=== PATIENT | female | born 1955 | race Caucasian/White ===

== ENCOUNTER 2017-07-14 06:58 | Day surgery (SDC) | payer OTHER ==
[~2017-07-14] VITALS: Ht 172.7 cm; Wt 137.0 kg
[~2017-07-14 06:58] MED LIST: ASPIRIN81 MG PO; ATORVASTATIN CA40 MG PO; DIABETIC MED PO; KOMBIGLYZE1 TA1 PO; LISINOPRIL5 MG PO; SERTRALINE HCL50 MG PO
[2017-07-14] MEDS ORDERED: LORTAB 7.57.5 MG PO (10:21)
[2017-07-14 11:06] VITALS: BP 103/59
== END 2017-07-14 10:52 | disposition home or self-care (01) | DRG 744 ==
LOC: ORM 06:58
PROVIDERS: ATTEND Obstetrics & Gynecology
PROC: 0UDB7ZX Extraction of Endometrium, Via Natural or Artificial Opening, Diagnostic (ICD-10-PCS; principal; 2017-07-14)
DX: C54.1 Malignant neoplasm of endometrium (principal); E66.01 Morbid (severe) obesity due to excess calories; N95.0 Postmenopausal bleeding; R93.8 Abnormal findings on diagnostic imaging of other specified body structures; I10 Essential (primary) hypertension; E11.9 Type 2 diabetes mellitus without complications; Z68.43 Body mass index [BMI] 50.0-59.9, adult

== ENCOUNTER 2021-09-20 21:33 | Observation (INO) | payer MEDICARE, OTHER ==
[~2021-09-20] VITALS: Ht 157.5 cm; Wt 126.0 kg
[~2021-09-20 21:33] MED LIST changes: +LORTAB 7.57.5 MG PO
--- NOTE | 2021-09-20 21:35 | NUR ---
ADM F WITH STATED WEAKNESS DIARRHEA X 3-4 DAYS HX COVID 10+ DAQYS PRIOR.COUGH AND CONGESTION REPORTED THO PT IS CLEAR AND UNCONGESTED AT ARRIVAL.CLEAR BILAST BREATH SOUNDS
--- NOTE | 2021-09-20 22:40 | NUR ---
W/P/D SKIN NO COUGH NO CONGESTION NO SOB.SR NO ECTOPY NO DIARRHEA
[2021-09-20 22:56] LABS: HEMATOCRIT 39.7 % (37.0-47.0); HEMOGLOBIN 12.2 g/dl (12.0-16.0); IMMATURE GRANULOCYTES 3.6 % (0.0-5.0); MEAN CELL VOLUME 96.8 fL CALC (80.0-100.0); MEAN CORPUSCULAR HGB 29.8 pG CALC (26.0-32.0); MEAN CORPUSCULAR HGB CONC 30.7 g/dL CAL (32.0-36.0); NEUT# 5.63 thou/uL (2.00-7.15); RED BLOOD COUNT 4.1 mill/uL (4.20-5.60); RED CELL DISTRI WIDTH 14.6 % (11.5-15.5)
[2021-09-20 23:12] LABS: ALBUMIN 3.2 g/dL (3.2-5.0); ALKALINE PHOSPHATASE 93 u/l (38-126); BUN 15 mg/dL (8-23); BUN/CREATININE RATIO 18 (12-20 (CALC)); CARBON DIOXIDE 28 mmol/l (22-30); CHLORIDE 101 mmol/l (95-108); CREATININE 0.9 mg/dL (0.5-1.0); GFR > 60 ML/MIN (>=60 (CALC)); GFR FOR AFR.AMER. > 60 ML/MIN (>=60 (CALC)); SGOT/AST 30 u/l (9-36); SODIUM 138 mmol/l (137-146); TOTAL PROTEIN 7.3 g/dL (6.3-8.2)
[2021-09-20 23:13] LABS: ANION GAP 13 (6-22 (CALC)); BILIRUBIN, TOTAL 1.2 mg/dL (0.0-1.4); POTASSIUM 3.6 mmol/l (3.5-5.1)
[2021-09-20 23:24] LABS: MYOGLOBIN 77 ng/mL (0 - 62)
--- NOTE | 2021-09-20 23:50 | NUR ---
PT UP ON BSC TO VOID 400CC CONC URINE SPEC TO LAB NO DIFF WITH BODY MOVEMENTS NO COUGH OR CONGESTION
[2021-09-21] VITALS (7 sets, daily range): BP systolic 93–156; BP diastolic 50–76
[2021-09-21 00:35] LABS: URINE BILIRUBIN - DIPSTICK MODERATE (NEGATIVE); URINE BLOOD DIPSTICK TRACE-INTACT (NEGATIVE); URINE COLOR YELLOW; URINE GLUCOSE - DIPSTICK NEGATIVE (NEGATIVE); URINE KETONE 40 mg/dL (NEGATIVE); URINE LEUK ESTERASE NEGATIVE (NEGATIVE); URINE NITRITE - DIPSTICK NEGATIVE (Negative); URINE PROTEIN - DIPSTICK 30 mg/dL (NEG-TRACE); URINE SPECIFIC GRAVITY 1.025
[2021-09-21 00:40] LABS: URINE BACTERIA MODERATE hpf; URINE EPITHELIAL CELLS MANY EPI/hpf (0-FEW); URINE FINE GRAN CAST FEW lpf; URINE HYALINE CAST FEW lpf (NONE-RARE)
[2021-09-21 00:41] LABS: URINE COARSE GRANULAR CAST FEW lpf
[2021-09-21] MEDS ORDERED: BACTRIM DS1 TAB PO (00:47)
--- NOTE | 2021-09-21 01:00 | NUR ---
NASAL SWAB SPEC COLLECTED FOR COVID TEST NO COUGH NO CONGESTION NARES ARE CLEAR CLEAN AND DRY
--- NOTE | 2021-09-21 01:37 | NUR ---
W/P/D SKIN SR NO ECTOPY NO N/V OR D NO COUGH OR CONGESTION GIVEN WATER PO NO N/V DRANK ALL OF 16 OZ
--- NOTE | 2021-09-21 02:45 | NUR ---
W/P/D SKIN A/O X3 GCS 15 NO FOCAL DEFICITS
--- NOTE | 2021-09-21 03:35 | NUR ---
SR NO ECTOPY W/P/D SKIN GCS 15 SPEECH CLEAR NO COUGH NO CONGESTION NO FOCAL DEFICITS NO WEAKNESSES
--- NOTE | 2021-09-21 04:05 | NUR ---
PHONE REPORT TO NURSE EMI
--- NOTE | 2021-09-21 04:13 | NUR ---
PT TRANSPORTED TO [facility] 263 VIA WC ON TELE IN STABLE CONDITION NO CONGESTION NO COUGH NO INCONTINENE OF URINE OR STOOL THIS ER VISIT A/O X3 GCS 15
--- NOTE | 2021-09-21 04:20 | NUR ---
FROM ER TO ROOM 263 VIA W/C ACCOMPANIED BY SALMA LUU. PATIENT ABLE TO TRANSFER FROM W/C TO BED WITH SLOW UNSTEADY GAIT WITH ASSISTANCE. A&OX4, DENIES PAIN OR SOB AT THIS TIME, VSS, ON TELEMETRY READING SR PER ED MONITORING, NO S/S OF DISTRESS NOTED, RESP ARE EVEN AND UNLABORED, 22G LFA PATENT, IV FLUIDS INFUSING AT 150ML/HR, IV SHOWS NO S/S OF INFILTRATION. PT ARRIVED ON 2L O2 VIA NC, DENIES USING OXYGEN AT HOME, DIPPER AND DRIER COUGH NOTED, LUNGS ARE CLEAR UPPER LOBES, DIMINISHED BIBASILAR, MOVES ALL EXTREMETIES, SOME WEAKNESS NOTED, ENCOURAGED TO CALL FOR ASSISTANCE, EDUCATED ABOUT SAFETY MEASURES, CALL ROBBINS SYSTEM, AND PLAN OF CARE, PT VOICES UNDERSTANDING. CALL ROBBINS AT REACH, WILL FOLLOW UP WITH PLAN OF CARE.
[2021-09-21 04:58] LABS: TSH, 3RD GENERATION 1.21 uIU/mL (0.47 - 4.68)
--- NOTE | 2021-09-21 05:52 | NUR ---
PATIENT STATES IS DIABETIC AND IS ON METFORMIN AT HOME, DOES NOT RECALL DOSE, BUT TAKES IT TWICE DAILY. ALSO ON CALCIUM PO AND A CHOLESTEROL PILL, UNKNOWN DOSE.
--- NOTE | 2021-09-21 08:11 | NUR ---
PT IS A&OX3. HAS O2 AT BEDSIDE 2L VIA NC. DOES NOT WANT TO USE AT THIS TIME. PT HAS TWO IV SITES RAC 20G UNABLE TO FLUSH. 22 ON THE LAC FLUSHED WITH NO RESISTANCE NS INFUSING PER EMAR ORDER. PT STATES NO PAIN AT THIS TIME. LUNG SOUNDS ARE CLEAR UPPER/LOWER LOBES ANTERIOR AND POSTERIOR. HEART SOUNDS ARE REGULAR. TELE MONITOR IN PLACE, CONTINOUS MONITORING BY ED. BOWEL SOUNDS ARE ACTIVE X4. PT HAS NO FEELING OF N/V. PT HAS GENERALIZED EDEMA. REFUSES GIAN HOSE SOCKS. RADIAL AND PEDAL PULSE STRONG EQUALLY BILATERALLY. STATES BNO OTHER NEEDS AT THIS TIME. CALL LIGHT AND PERSONAL ITEMS ARE WITHIN REACH. GLUCOSE THIS MORNING 101, NO COVERAGE NEEDED PER SLIDING SCALE. FALL/SAFTEY PRECAUTIONS IN PLACE.
--- NOTE | 2021-09-21 12:00 | NUR ---
PT EATING LUNCH AT THIS TIME. STATES NOT FEELING O2 ANYMORE. BUT IT IS THERE AT BEDSIDE. TELE MONITOR IN PLACE. FALL/SAFETY PRECAUTIONS IN PLACE. IV PATENT INFUSING NS PER EMAR. STATES NO OTHER NEEDS AT THIS TIME. CALL LIGHT IS WITHIN REACH.
--- NOTE | 2021-09-21 18:03 | NUR ---
PT WATCHING TV AT THIS TIME. STATES NO PAIN AT THIS TIME. TELE MONITOR IS IN PLACE. FALL/SAFTEY PRECAUTIONS IN PLACE. IV PATENT INFUSING NS PER EMAR. CALL LIGHT IS WITHIN REACH.
--- NOTE | 2021-09-21 19:28 | NUR ---
PATIENT RESTING IN BED AT THIS TIME WATCHING TV-AWAKE, ALERT AND ORIENTEDX3. PATIENT WITH NO COMPLAINTS AT THIS TIME. APPETITE FOR DINNER WAS FAIR. PATIENT ON ISOLATION FOR COVID. IV SITE TO LEFT WRIST INTACT WITH IVF NS PATENT AND INFUSING AT 125CC/HR. SITE REMAINS HEALTHY AT THIS TIME. TELE MONITOR IN PLACE. PATIENT WAS UP TO THE BSC AND VOIDED 300CC OF DARK NICO URINE. LUNGS ARE CLEAR. ABD IS SOFT WITH ACTIVE BS. NO PERIPHERAL EDEMA NOTED WITH PULSES PALPABLE. SAFETY PRECAUTIONS REINFORCED. CALL LIGHT IN REACH, WILL CONT TO MONITOR.
--- NOTE | 2021-09-21 23:58 | NUR ---
PATIENT SITTING UP IN BED WATCHING TV-VS BEING TAKEN. NO COMPLAINTS AT THIS TIME. TELE MONITOR IN PLACE. IVF NS PATENT AND INFUSING ORDERED AT 125CC/HR. PATIENT ASSISTED OOB TO BSC TO VOID. SAFETY PRECAUTIONS REINFORCED. CALL LIGHT IN REACH. WILL CONT TO MONITOR.
[2021-09-22] VITALS: BP 155/73
[2021-09-22 04:11] VITALS: BP 142/88
--- NOTE | 2021-09-22 04:18 | NUR ---
PATIENT IS STILL AWAKE WATCHING TV-HASN'T SLEPT MUCH TONIGHT. O2 SAT IS 91-92% WITH O2 VIA NASAL CANNULA IN PLACE BUT PATIENT DOESN'T LEAVE IT ON AND HER SATS WILL GO DOWN TO 88%. ENCOURAGED PATIENT TO LEAVE IT ON. RESP ARE EVEN AND UNLABORED AT THIS TIME. TELE MONITOR IN PLACE. IVF PATENT AND INFUSING VIA LEFT WRIST SITE AT 125CC/HR. SAFETY PRECAUTIONS REINFORCED. CALL LIGHT IN REACH. WILL CONT TO MONITOR,
[2021-09-22 05:22] LABS: HEMATOCRIT 34.6 % (37.0-47.0); HEMOGLOBIN 10.7 g/dl (12.0-16.0); IMMATURE GRANULOCYTES 4.4 % (0.0-5.0); MEAN CELL VOLUME 96.1 fL CALC (80.0-100.0); MEAN CORPUSCULAR HGB 29.7 pG CALC (26.0-32.0); MEAN CORPUSCULAR HGB CONC 30.9 g/dL CAL (32.0-36.0); NEUT# 6.33 thou/uL (2.00-7.15); RED BLOOD COUNT 3.6 mill/uL (4.20-5.60); RED CELL DISTRI WIDTH 14.7 % (11.5-15.5)
[2021-09-22 05:42] LABS: ALBUMIN 2.6 g/dL (3.2-5.0); ALKALINE PHOSPHATASE 81 u/l (38-126); ANION GAP 10 (6-22 (CALC)); BILIRUBIN, TOTAL 0.8 mg/dL (0.0-1.4); BUN 11 mg/dL (8-23); BUN/CREATININE RATIO 16 (12-20 (CALC)); C-REACTIVE PROTEIN 5.5 mg/dL (0-0.9); CARBON DIOXIDE 25 mmol/l (22-30); CHLORIDE 103 mmol/l (95-108); CREATININE 0.7 mg/dL (0.5-1.0); GFR > 60 ML/MIN (>=60 (CALC)); GFR FOR AFR.AMER. > 60 ML/MIN (>=60 (CALC)); SGOT/AST 23 u/l (9-36); SODIUM 134 mmol/l (137-146)
--- NOTE | 2021-09-22 08:15 | NUR ---
ENCOURAGED PT TO GET OUT OF BED. PT SPO2 WAS 85 GAVE O2 2L VIA NC BROUGHT PT UP TO 92%. ASSESSMENT AND VITALS ALLOWED AT THIS TIME. LUNG SOUNDS ARE CLEAR UPPER/LOWER LOBES ANTERIOR AND POSTERIOR. HEART SOUNDS ARE REGULAR. TELE MONITOR IN PLACE, CONTINOUS MONITORING BY ED. BOWEL SOUNDS ACTIVE X4. GLUCOSE THIS MORNING 137 NO COVERAGE NEEDED PER SLIDING SCALE. IV IS 22G LW FLUSHED WITH NO RESISTANCE. FALL/ SAFTEY PRECAUTIONS IN PLACE. CALL LIGHT IS WITHIN REACH
[2021-09-22 11:11] VITALS: BP 145/80
--- NOTE | 2021-09-22 13:49 | NUR ---
PT IV DISLODGED, IV CATHETER INTACT. LW 22G. CALL LIGHT WITHIN REACH
--- NOTE | 2021-09-22 14:21 | NUR ---
ATTEMPTING TO ESTABLISH NEW IV FOR PT. PT STATES NO PAIN AT THIS TIME. TELE MONITOR IS IN PLACE. FALL/SAFTEY PRECAUTIONS ARE IN PLACE. CALL LIGHT IS WITHIN REACH.
--- NOTE | 2021-09-22 14:59 | NUR ---
NEW IV ESTABLISHED BY VESTA ONTIVEROS. RIGHT HAND 22G. CALL LIGHT WITHIN REACH. PT TOLERATED WELL.
[2021-09-22 15:04] VITALS: BP 137/70
--- NOTE | 2021-09-22 18:05 | NUR ---
PT WATCHING TV AT THIS TIME. IV PATENT. STATES NO PAIN AT THIS TIME. FALL/SAFETY PRECAUTIONS IN PLACE. TELE MONITOR IN PLACE. CALL LIGHT WITHIN REACH.
[2021-09-22 20:03] VITALS: BP 140/69
--- NOTE | 2021-09-22 20:13 | NUR ---
Pt medicated as orders provide. Assisted turning down lights and adjusting bed for comfort per requests. Assessment completed at this time. No s/o distress, pt denies sob, nausea or any pain at this time. Instructed her to use call light as needs arise, verbalized understanding. Lights left on for preference per pt.
[2021-09-23 00:32] VITALS: BP 144/67
--- NOTE | 2021-09-23 01:15 | NUR ---
PT APPEARS TO BE SLEEPING, EYES ARE CLOSED AND RESP EVEN AND NON-LABORED AT THIS TIME. CALL LIGHT AT SIDE W/IN REACH.
--- NOTE | 2021-09-23 04:00 | NUR ---
PT APPEARS TO BE SLEEPING, NO S/O DISTRESS. OXYGEN NC IS IN PLACE, RESP EVEN AND NON-LABORED. CALL LIGHT AT SIDE, BED IN LOWEST POSITION.
[2021-09-23 05:12] VITALS: BP 134/80
[2021-09-23 05:40] LABS: HEMOGLOBIN 10.2 g/dl (12.0-16.0); MEAN CELL VOLUME 96.8 fL CALC (80.0-100.0); MEAN CORPUSCULAR HGB 29.9 pG CALC (26.0-32.0); MEAN CORPUSCULAR HGB CONC 30.9 g/dL CAL (32.0-36.0); RED BLOOD COUNT 3.41 mill/uL (4.20-5.60); RED CELL DISTRI WIDTH 14.8 % (11.5-15.5)
[2021-09-23 05:48] LABS: ANION GAP 8 (6-22 (CALC)); BUN 7 mg/dL (8-23); BUN/CREATININE RATIO 11 (12-20 (CALC)); CARBON DIOXIDE 27 mmol/l (22-30); CHLORIDE 104 mmol/l (95-108); CREATININE 0.7 mg/dL (0.5-1.0); GFR > 60 ML/MIN (>=60 (CALC)); GFR FOR AFR.AMER. > 60 ML/MIN (>=60 (CALC)); MAGNESIUM 1.4 mg/dL (1.6-2.3); POTASSIUM 3.9 mmol/l (3.5-5.1); SODIUM 135 mmol/l (137-146)
[2021-09-23 07:56] VITALS: BP 146/73
[2021-09-23 10:35] VITALS: BP 119/59
--- NOTE | 2021-09-23 10:53 | NUR ---
PT SEEN OOB IN CHAIR, NO DISTRESS NOTED. PT IS 87% ON ROOM AIR, ENCOURAGED TO USE NASAL CANNULA.
--- NOTE | 2021-09-23 12:10 | NUR ---
S- Pt reported feeling much better than she did on Thursday. 0- Pt OOB in chair with [address] 02, sat was 88, 02 placed on and importance of using 0xygen stressed, 0s at 93%. Pt transferred to bed and was able to move supine to and from sit with mod assist of upper body, rolling side to side with modified indep using bed rail. She ambulated 2 x 30' in room with CGA touching bed as she walked. AROM ex performed to BLE in sitting x 10-15 reps. Importance of doing ex stressed. Pt was left in chair with call cueva and tray in reach, gait belt and non skid socks in place during treatment. HR 88-90, BP 119/57, 02 sat 91 after walking Time spent with pt 45 min A- pt with increase mobility. [facility] 13 home health P will follow per POC.
--- NOTE | 2021-09-23 13:48 | NUR ---
PT CONTINUES BEFORE, NO CHANGE IN STATUS. PT RECOVERS QUICKLY WHEN SATS DROP TO 87 OR BELOW.
--- NOTE | 2021-09-23 15:56 | NUR ---
PT RECEIVED STEROID AND IS RECEIVING REMDESEVIR FOR SATS IN THE UPPER 80s. PT DENIES SHORTNESS OF BREATH.
[2021-09-23 16:21] VITALS: BP 138/68
[2021-09-23 19:00] VITALS: BP 121/59
--- NOTE | 2021-09-23 21:30 | NUR ---
PATIENT SITTING UP IN BED AT THIS TIME WITH O2 VIA NASAL CANNULA IN PLACE. O2 SAT IS 93% WITH O2 IN PLACE. GLUCOSE MONITOR WAS 303-PATIENT WAS COVERED WITH 4UNITS OF HUMALOG PER COVERAGE PROTOCOL. HS SNACK PROVIDED. LEVAQUIN INFUSING ORDERED VIA RIGHT HAND SITE. CALL LIGHT IN REACH. WILL CONT TO MONITOR.
[2021-09-24] VITALS: BP 130/60
--- NOTE | 2021-09-24 00:40 | NUR ---
PATIENT RESTING IN BED AT THIS TIME WITH O2 VIA NASAL CANNULA IN PLACE. EYES ARE CLOSED AND RESPS ARE EVEN AND UNLABORED. TELE MONITOR IN PLACE. SALINE LOCK TO RIGHT HAND INTACT. CALL LIGHT IN REACH. WILL CONT TO MONITOR.
[2021-09-24 04:00] VITALS: BP 142/61
--- NOTE | 2021-09-24 04:02 | NUR ---
PATIENT RESTING IN BED AT THIS TIME. EYES ARE CLOSED AND RESPS ARE EVEN AND UNLABORED. TELE MONITOR IN PLACE. SALIONE LOCK TO RIGHT HAND INTACT. CALL LIGHT IN REACH. WILL CONT TO MONITOR.
[2021-09-24 06:06] LABS: HEMATOCRIT 33.3 % (37.0-47.0); HEMOGLOBIN 10.3 g/dl (12.0-16.0); IMMATURE GRANULOCYTES 4.4 % (0.0-5.0); MEAN CELL VOLUME 96.5 fL CALC (80.0-100.0); MEAN CORPUSCULAR HGB 29.9 pG CALC (26.0-32.0); MEAN CORPUSCULAR HGB CONC 30.9 g/dL CAL (32.0-36.0); NEUT# 3.62 thou/uL (2.00-7.15); RED BLOOD COUNT 3.45 mill/uL (4.20-5.60); RED CELL DISTRI WIDTH 14.7 % (11.5-15.5)
[2021-09-24 06:32] LABS: ALBUMIN 2.6 g/dL (3.2-5.0); ALKALINE PHOSPHATASE 110 u/l (38-126); ANION GAP 10 (6-22 (CALC)); BILIRUBIN, TOTAL 0.5 mg/dL (0.0-1.4); BUN 14 mg/dL (8-23); BUN/CREATININE RATIO 17 (12-20 (CALC)); CARBON DIOXIDE 27 mmol/l (22-30); CHLORIDE 103 mmol/l (95-108); CREATININE 0.9 mg/dL (0.5-1.0); GFR > 60 ML/MIN (>=60 (CALC)); GFR FOR AFR.AMER. > 60 ML/MIN (>=60 (CALC)); SGOT/AST 22 u/l (9-36); SODIUM 135 mmol/l (137-146); TOTAL PROTEIN 6.3 g/dL (6.3-8.2)
[2021-09-24 06:33] LABS: POTASSIUM 5.1 mmol/l (3.5-5.1)
--- NOTE | 2021-09-24 08:00 | NUR ---
SHIFT CHANGE REPORT, PT AWAKE ALERT AND ORIENTED SITTING UP ON SIDE OF BED HAVING MEAL, NO C/O DISCOMFORT, IVF INFUSING, TELE MONITOR IN PLACE, O2 @ 2L VIA NC IN PLACE, CALL ROBBINS IN REACH AND BED LOCKED IN LOWEST POSITION.
[2021-09-24 08:13] VITALS: BP 124/68
[2021-09-24 10:57] VITALS: BP 123/62
--- NOTE | 2021-09-24 11:53 | NUR ---
S- Pt stated she can not wait to get home. 0- Pt sitting in recliner without complaints voiced. AROM ex performed in recliner including heelslides, hip abd/add, hip IR/ER, ankle DF LAQ and marching 2 x 10 reps each. Pt moved sit to stand with supervision x 3. Pt ambulated with min assist x 60' and light touch on furniture, 1 x 30 without light touching of furniture and min assist. Gait with RW x 30 with CGA/min due to pt with poor use and safety with walker. [address] though out treatment. 02 sats 94%, HR 59 to low 60's, BP 123/62. Time spent with pt 40 min. A- [facility] 14 home with home health. P- Will follow per POC.
--- NOTE | 2021-09-24 12:04 | NUR ---
SITTING UP IN RECLINER AT THIS TIME, ALL NEEDS ADDRESSED, NO CHANGES IN CONDITION BUT STATES SHE HAS SOME DIARRHEA SINCE AM, INFORMED SOME MEDICATIONS SHE IS CURRENTLY TAKING CAN POSSIBLY CAUSE DIARRHEA BUT WILL CONTINUE TO MONITOR.
[2021-09-24 15:00] VITALS: BP 139/63
--- NOTE | 2021-09-24 15:31 | NUR ---
TRANSPORTED OFF UNIT VIA W/C BY STAFF FOR RENAL US, AND IS BACK T ROOM AT THIS TIME SETTLED IN RECLINER, ALL NEEDS MET/ADDRESSED, CALL ROBBINS IN REACH.
[2021-09-24 19:00] VITALS: BP 154/69
--- NOTE | 2021-09-24 19:00 | NUR ---
RECIEVED REPORT FROM VESTA GUZMÁN
--- NOTE | 2021-09-24 21:00 | NUR ---
PT RESTING IN SEMI FOWLERS POSITION. PT IS A/OX3. ASSESSMENT COMPLETED. BP 154/69, HR 64, O2 92% ON 2L NC. RESPIRATIONS ARE EVEN AND UNLABORED WITH NO DISTRESS NOTED. LUNG SOUNDS ARE DIMINISHED. BOWEL SOUNDS ACTIVE. HEART RHYTHM NORMAL WITH TELE IN PLACE, SB WITH 1 AVB PER ER MONITORING. #22G RH FLUSHED, SITE APPEARS HEALTHY AND PATENT. SKIN INTACT. PULSES STRONG. TRACED EDEMA NOTED TO BLE. PT DENIES OF ANY PAINS OR DISCOMFORTS AT THIS TIME. ALL SAFETY PRECAUTIONS ARE IN PLACE WITH CALL LIGHT IN REACH. WILL CONTINUE TO MONITOR.
[2021-09-25] VITALS: BP 150/68
--- NOTE | 2021-09-25 00:36 | NUR ---
PT SLEEPING IN SEMI FOWLERS POSITION. RESPIRATIONS ARE EVEN AND UNLABORED ON 2L NC.TELE MONITORING IN PLACE. NO SIGNS OF ANY PAINS OR DISCOMFORTS. ISOALTION PRECAUTIONS IN PLACE. SAFTEY PRECAUTIONS IN PLACE WITH CALL LIGHT IN REACH. WILL CONTINUE TO MONITOR
--- NOTE | 2021-09-25 03:51 | NUR ---
AMMONIA STILL OPERATOR BY MAXIME, TELE MONITOR PT SUSTAINING SB 40-41. PT SLEEPING IN SEMI FOWLERS POSITION. AWAKES TO SPEECH. RESPIRATIONS REMAINS EVEN AND UNLABORED ON 2L NC. #[address]. PT DENIES OF ANY PAINS OR DISCOMFORTS. TELE MONITORING IN PLACE. PT SB 50'S PER TELE MONITORING AFTER EXITING ROOM. ALL SAFTEY PRECAUTIONS ARE IN PLACE WITH CALL LIGHT IN REACH.AIR/CONTACT PRECAUTIONS.WILL CONTINUE TO MONITOR
[2021-09-25 04:00] VITALS: BP 122/69
[2021-09-25 05:39] LABS: HEMATOCRIT 32.1 % (37.0-47.0); HEMOGLOBIN 9.9 g/dl (12.0-16.0); IMMATURE GRANULOCYTES 2.3 % (0.0-5.0); MEAN CELL VOLUME 96.7 fL CALC (80.0-100.0); MEAN CORPUSCULAR HGB 29.8 pG CALC (26.0-32.0); MEAN CORPUSCULAR HGB CONC 30.8 g/dL CAL (32.0-36.0); NEUT# 6.01 thou/uL (2.00-7.15); RED BLOOD COUNT 3.32 mill/uL (4.20-5.60); RED CELL DISTRI WIDTH 14.8 % (11.5-15.5)
[2021-09-25 06:01] LABS: ALBUMIN 2.5 g/dL (3.2-5.0); ALKALINE PHOSPHATASE 112 u/l (38-126); ANION GAP 10 (6-22 (CALC)); BILIRUBIN, TOTAL 0.4 mg/dL (0.0-1.4); BUN 18 mg/dL (8-23); BUN/CREATININE RATIO 24 (12-20 (CALC)); CARBON DIOXIDE 28 mmol/l (22-30); CHLORIDE 103 mmol/l (95-108); CREATININE 0.8 mg/dL (0.5-1.0); GFR > 60 ML/MIN (>=60 (CALC)); GFR FOR AFR.AMER. > 60 ML/MIN (>=60 (CALC)); POTASSIUM 4.7 mmol/l (3.5-5.1); SGOT/AST 22 u/l (9-36); SODIUM 136 mmol/l (137-146)
[2021-09-25 08:08] VITALS: BP 132/62
--- NOTE | 2021-09-25 09:00 | NUR ---
PT IN RECLINER HAVING BREAKFAST. NON LABORED RESPIRATIONS; DIMINISHED LUNG AWAD; 02 @ 2L IN PLACE. NORMAL S1,S2. ACTIVE BOWEL SOUNDS X4 QUADRANTS. PT DENIES ANY PAIN AT THE MOMENT. DR CLAIRE AND KULDIP FORD AT BEDSIDE DISCUSSING POC.
[2021-09-25 10:59] VITALS: BP 143/70
--- NOTE | 2021-09-25 11:32 | NUR ---
S- Pt reported being up for shower, some c/o nausea. She reported doing some of her exercises indep. 0- Pt OOB in chair, [address] place. She performed AROM ex in recliner, including heelslide, hip abd/add, hip IR/ER, quad/glut sets, LAQ and marching 2 x10 reps each. Standing balance activities including wt shifting, eyes open feet together 30 sec, eyes closed feet together 20 sec. up on toes 10 reps. Gait on RW 2 x 60' with SBA and [address]. Pt posture was flexed and need verbal cues to stand tall and use walker for balance only. Gait belt and non skid socks in place. BP 139/57, 138/65 HR 71 to 92, 02 sats 98% stable. Pt left in chair with call cueva/phone and tray in reach. Pt told to have assist with mobility. Time spent with pt 40 min A- [facility] 15 home health P- will follow.
--- NOTE | 2021-09-25 12:30 | NUR ---
PT IN RECLINER HAVING LUNCH. NO DISTRESS NOTED. PT DENIES PAIN AT THE MOMENT. CALL LIGTH WITHIN REACH.
--- NOTE | 2021-09-25 13:37 | NUR ---
S- Pt reported doing some of her exercises indep. She was up for shower this am. 0- Pt resting in chair with [address] Pt performed ther ex in chair including heelsides, hip abd/add, hip IR/ER, quad/glut sets, LAQ/marching 2x 10 reps each. In stance wt shifting, up on toes, feet together eyes open, eyes closed. Gait with RW 2 x 60' with SBA, verbal cues to stand tall and decrease. wt bearing on walker (balance not support). Gait belt and non skid socks in place, 02 on during treatment. 02 sats 95 to 96%, BP 150/65, HR 54 to 76. Pt left in chair with feet elevated, callbell and tray in reach. A- [facility] 14 home with home health. P- Will follow.
[2021-09-25 15:13] VITALS: BP 136/62
--- NOTE | 2021-09-25 16:55 | NUR ---
PT SITTING IN RECLINER WATCHING TV. NO DISTRESS NOTED. PT DENIES PAIN AT THIS MOMENT. IV SITE HEALTHY AND PATENT. O2 IN PLACE @2L. CALL LIGHT WITHIN REACH.
[2021-09-25 19:00] VITALS: BP 139/77
--- NOTE | 2021-09-25 19:00 | NUR ---
RECIEVED REPORT FROM SALMA BYRNE AND TOD RN
--- NOTE | 2021-09-25 20:30 | NUR ---
PT RESTING IN SEMI FOWLERS PSOITION. PT IS A/OX3. ASSESSMENT COMPLETED. RESPIRATIONS ARE EVEN AND UNLABORED ON 2L NC. LUNG SOUNDS ARE DIMINISHED. HEART RHYTHM NORMAL WITH TELE IN PLACE. BOWEL SOUNDS ACTIVE. #22G RH PULLED OUT,PT REFUSING ADDITIONAL IV. SKIN INTACT. PULSES STRONG. TRACE EDEMA NOTED TO BLE. PT DENIES OF ANY PAINS OR DISCOMFORTS AT THIS TIME. ALL SAFTEY PRECAUTIONS ARE IN PLACE WITH CALL LIGHT IN REACH. WILL CONTINUE TO MONITOR.
--- NOTE | 2021-09-25 21:40 | NUR ---
PT AGGRED TO ALLOW INFORMATION TECHNOLOGY ASSISTANT WILBER CHANGE TO OBTAIN IV ACCESS. UNABLE TO OBTAIN. PT REFUSING TO ALLOW ANY ADDITIONAL STAFF TO ATTEMPT.PT EDUCATED ON NEED FOR IV ACESS. PT CONTINUES TO REFUSE. DR CLAIRE INFORMED. COURTNEY PO ORDERED. ORDERS PLACED FOR PICC LINE TOMORROW MORNING. PT INFROMED.
[2021-09-26] VITALS: BP 163/70
--- NOTE | 2021-09-26 00:33 | NUR ---
PT SLEEPING IN SEMI FOWLERS POSITION. RESPIRATIONS ARE EVEN AND UNLABORED ON 2L NC. TELE MONITORING IN PLACE. NO SIGNS OF ANY PAINS OR DISCOMFORTS AT THIS TIME. ALL SAFTEY PRECAUTIONS ARE IN PLACE WITH CALL LIGHT IN REACH. WILL CONTINUE TO MONITOR
[2021-09-26 04:00] VITALS: BP 158/80
--- NOTE | 2021-09-26 04:00 | NUR ---
PT SLEEPING IN SEMI FOWLERS POSITION. RESPIRATIONS ARE EVEN AND UNLABORED ON 2L NC. NO IV SITE, MD ALREADY AWARE. TELE MONITORING IN PLACE. NO SIGNS OF ANY PAINS OR DISCOMFORTS AT THSI TIME.ALL SAFTEY PRECAUTIONS ARE IN PLACE WITH CALL LIGHT IN REACH. WILL CONTINUE MONITORING
[2021-09-26 05:07] LABS: HEMATOCRIT 34.2 % (37.0-47.0); HEMOGLOBIN 10.4 g/dl (12.0-16.0); IMMATURE GRANULOCYTES 4.7 % (0.0-5.0); MEAN CELL VOLUME 97.2 fL CALC (80.0-100.0); MEAN CORPUSCULAR HGB 29.5 pG CALC (26.0-32.0); MEAN CORPUSCULAR HGB CONC 30.4 g/dL CAL (32.0-36.0); NEUT# 4.89 thou/uL (2.00-7.15); RED BLOOD COUNT 3.52 mill/uL (4.20-5.60)
[2021-09-26 05:33] LABS: ALBUMIN 2.6 g/dL (3.2-5.0); ALKALINE PHOSPHATASE 92 u/l (38-126); ANION GAP 9 (6-22 (CALC)); BILIRUBIN, TOTAL 0.5 mg/dL (0.0-1.4); BUN 24 mg/dL (8-23); BUN/CREATININE RATIO 29 (12-20 (CALC)); C-REACTIVE PROTEIN 2.5 mg/dL (0-0.9); CARBON DIOXIDE 30 mmol/l (22-30); CHLORIDE 102 mmol/l (95-108); CREATININE 0.8 mg/dL (0.5-1.0); GFR > 60 ML/MIN (>=60 (CALC)); GFR FOR AFR.AMER. > 60 ML/MIN (>=60 (CALC)); SGOT/AST 31 u/l (9-36); SODIUM 136 mmol/l (137-146); TOTAL PROTEIN 6.3 g/dL (6.3-8.2)
[2021-09-26 05:34] LABS: POTASSIUM 5.2 mmol/l (3.5-5.1)
[2021-09-26 08:00] VITALS: BP 143/73
--- NOTE | 2021-09-26 10:18 | NUR ---
ALERT AND ORIENTED PATIENT/ RESPIRATORY DISTRESS IS NOT OBSERVED AT THE TIME OF THIS NOTE. EDUCATED AN GUIDES ON MEDICATIONS, NURSING [TOY AND CLINICAL PLAN FOR TODAY, PATIENT REFERS TO UNDERSTAND. MEDICATIONS ARE ADMINISTERED ACCORDING TO MAR. STABLE PATIENT AT THE MOMENT DOES NOT REPORT PAIN. PATIENT WITH PICCLINE ORDER RETURNS FROM PROCEDURE. NO COMPLICATION. PREVENTIVE ROUDS EVERY HOUR ARE CARRIED OUT FOR FALL PREVENTION AND PATIENT SATISFACTION.
[2021-09-26 12:23] VITALS: BP 144/77
--- NOTE | 2021-09-26 13:07 | NUR ---
S- Pt reported just getting back from PICC line placement. 0- Pt resting in chair, stated she would get a shower later. LE AROM ex performed in sitting including marching/LAQ/ankle DF, clam shells. Standing up on toe/wt shifting using walker for support. Pt ambulted 2 x 50' in room with RW and verbal cues, with supervision only. Pt instructed to avoid pushing/pulling with RUE secondary to PICC line. 02 sats in upper 90's (02in place during treatment), HR in 60's. Gait belt and non skid socks in placd. Pt left resting in chair with callbell/phone and tray in reach. A- [facility] 14 home with home health. P- will follow.
[2021-09-26 15:09] VITALS: BP 164/92
--- NOTE | 2021-09-26 16:31 | NUR ---
Patient demonstrating independence with ADLs. Am-PAC score 15, return home with C to assist with endurance.
[2021-09-26 19:00] VITALS: BP 126/60
--- NOTE | 2021-09-26 19:00 | NUR ---
PT RESTING IN SEMI FOWLERS POSITION. PT IS A/OX3. ASSESSMENT AND VITALS COMPLETED. RESPIRATIONS ARE EVEN AND UNLABORED ON 2L NC. LUNG SOUNDS ARE DIMINISHED. HEART RHYTHM NORMAL WITH TELE IN PLACE. BOWEL SOUNDS ACTIVE. JAYSON SINGLE LUMEN PICC FLUSHED, SITE PATENT. CIRCUMFERENCE MEASURING 34.5 CM. SKIN INTACT. PULSES STRONG. 1+ EDEMA NOTED TO BLE. PT DENIES OF ANY PAINS OR DISCOMFORTS. ALL SAFTEY PRECAUTIONS ARE IN PLACE WITH CALL LIGHT IN REACH. WILL CONTINUE TO MONITOR
--- NOTE | 2021-09-26 21:47 | NUR ---
IV ABX SOMPLETED. SINGLE LUMEN PICC FLUSHED WITH SALINE AND HEPARIN PER ORDER
--- NOTE | 2021-09-26 23:37 | NUR ---
PT RESTING IN SEMI FOWLERS POSITION. RESPIRATIONS ARE EVEN AND UNLABORED ON 2L NC. JAYSON PICC REMAINS IN PLACE. TELE MONITORING IN PLACE. PT DENIES OF ANY PAINS OR DISCOMFORTS. ALL SAFTEY PRECAUTIONS ARE IN PLACE WITH CALL LIGHT IN REACH. WILL CONTINUE TO MONITOR
[2021-09-27] VITALS: BP 146/77
[2021-09-27 04:00] VITALS: BP 144/72
--- NOTE | 2021-09-27 04:32 | NUR ---
PT RESTING IN SEMI FOWLERS POSITION. RESPIRATIONS REMAINS EVEN AND UNLABORED ON 2L NC. TELE MONITORING IN PLACE. MORNING LABS COLLECTED FROM [facility] PICC, FLUSHED WITH SALINE AND HEPARIN. PT DENIES OF ANY PAINS OR DISCOMFORTS AT THIS TIME. ALL SAFTEY PRECAUTIONS ARE IN PLACE WITH CALL LIGHT IN REACH. WILL CONTINUE TO MONITOR
[2021-09-27 05:31] LABS: HEMATOCRIT 34.7 % (37.0-47.0); HEMOGLOBIN 10.7 g/dl (12.0-16.0); MEAN CELL VOLUME 96.1 fL CALC (80.0-100.0); MEAN CORPUSCULAR HGB 29.6 pG CALC (26.0-32.0); MEAN CORPUSCULAR HGB CONC 30.8 g/dL CAL (32.0-36.0); NEUT# 5.7 thou/uL (2.00-7.15); RED BLOOD COUNT 3.61 mill/uL (4.20-5.60); RED CELL DISTRI WIDTH 14.6 % (11.5-15.5)
[2021-09-27 05:34] LABS: IMMATURE GRANULOCYTES 6.8 % (0.0-5.0)
[2021-09-27 05:54] LABS: ALBUMIN 2.7 g/dL (3.2-5.0); ALKALINE PHOSPHATASE 100 u/l (38-126); ANION GAP 9 (6-22 (CALC)); BILIRUBIN, TOTAL 0.6 mg/dL (0.0-1.4); BUN 25 mg/dL (8-23); BUN/CREATININE RATIO 31 (12-20 (CALC)); CARBON DIOXIDE 32 mmol/l (22-30); CHLORIDE 100 mmol/l (95-108); CREATININE 0.8 mg/dL (0.5-1.0); GFR > 60 ML/MIN (>=60 (CALC)); GFR FOR AFR.AMER. > 60 ML/MIN (>=60 (CALC)); POTASSIUM 4.8 mmol/l (3.5-5.1); SGOT/AST 35 u/l (9-36); SODIUM 136 mmol/l (137-146); TOTAL PROTEIN 6.3 g/dL (6.3-8.2)
[2021-09-27 08:00] VITALS: BP 144/72
[2021-09-27] MEDS ORDERED: DEXAMETHASON6 MG PO (10:43)
[2021-09-27 11:14] VITALS: BP 108/52
--- NOTE | 2021-09-27 11:24 | NUR ---
S- pt reported not feeling well today. 0- Pt resting in spencer position watching TV. She was cooperative with LE es performed active and with gentle resistance 2 x 10 reps. Pt refused OOB to chair or to ambulated. DIVING SUPERVISOR aware and would try to get her up later. 02 initially not on pt, placed on 02 sats 94-91% with 02, HR 69, BP 108/57. Time spent with pt 25 min. A- [facility] unchanged, 15 home with home health. P- will follow per POC. Pt encouraged to do ex on her own during the day.
--- NOTE | 2021-09-27 14:20 | NUR ---
ALERT AND ORIENTED PATIENT X3. NO RESPIRATORY DISTRESS AT THE TIME OF THIS NOTE. ADMINISTER MEDICATIONS ACCORDING TO MAR. BRITTNEE MONROE EVERY HOUR.
[2021-09-27 14:56] VITALS: BP 147/70
--- NOTE | 2021-09-27 18:18 | NUR ---
DISCHARGE PATIENT WAS INFORMED TO [id number] AND CALL TWO TIMES BUT DID NOT ANSWER THE TELEPHONE
--- NOTE | 2021-09-27 19:30 | NUR ---
PT RESTING IN SEMI FOWLERS POSITION.PT IS A/OX3. REPSIRATIONS ARE EVEN AND UNLABORED ON 2L NC. NO IV SITE TELE MONITORING IN PLACE. PT DENIES OF ANY PAINS OR DISCOMFORTS. PT TO BE DC HOME,AWAITING TRANSPORTATION. DC INSTRUCTIONS PROVIDED BY DAY SHIFT. HEEL EMERY BUFFER EDUCATED ON HOME O2. PT STATES " IA M NOT WEARING THAT." PT RE-EDUACTED IN NEED AND USAGE. PT VERBALIZED UNDERSTANDING.PT REFUSES ANY SCHEDULED MEDICATIONS. PT STATES I WILL TAKE THEM ALL AT HOME. WILL CONTINUE TO MONITOR.
[2021-09-27 20:21] VITALS: BP 132/78
--- NOTE | 2021-09-27 21:10 | NUR ---
PT DC HOME VIA WHEELCHAIR IN STABLE CONDITION WITH HOOME O2, WALKER AND DC INSTRUCTIONS. TELE MONITORING REMOVED, ER INFORMED.
== END 2021-09-27 21:10 | disposition home health service (06) ==
LOC: ED 21:33 → ED-I 09-21 03:14 → ED 09-21 03:35 → MS2 09-21 03:36
PROVIDERS: Emergency Medicine; Nurse Practitioner; Nurse Practitioner Family; ADMIT Hospitalist; ATTEND Hospitalist
PROC: XW033E5 Introduction of Remdesivir Anti-infective into Peripheral Vein, Percutaneous Approach, New Technology Group 5 (ICD-10-PCS; principal; 2021-09-23)
PROC: 02HV33Z Insertion of Infusion Device into Superior Vena Cava, Percutaneous Approach (ICD-10-PCS; 2021-09-26)
PROC: B518ZZA Fluoroscopy of Superior Vena Cava, Guidance (ICD-10-PCS; 2021-09-26)
DX: U07.1 COVID-19 (principal); J12.82 Pneumonia due to coronavirus disease 2019; N39.0 Urinary tract infection, site not specified; R00.1 Bradycardia, unspecified; T37.5X5A Adverse effect of antiviral drugs, initial encounter; I10 Essential (primary) hypertension; E11.9 Type 2 diabetes mellitus without complications; I95.9 Hypotension, unspecified; E07.9 Disorder of thyroid, unspecified; Z85.41 Personal history of malignant neoplasm of cervix uteri; Z91.81 History of falling; S22.089A Unspecified fracture of T11-T12 vertebra, initial encounter for closed fracture; W19.XXXA Unspecified fall, initial encounter
CPT/HCPCS: J1650; J1956; J3475; Q9967